=== PATIENT | male | born 2000 | race Caucasian/White ===

== ENCOUNTER 2022-12-25 10:05 | Emergency (ER) | payer OTHER ==
[~2022-12-25] VITALS: Ht 182.9 cm; Wt 77.1 kg
[2022-12-25 10:37] VITALS: BP 121/60
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
--- NOTE | 2022-12-25 11:22 | NUR ---
AMB. WITH NO DIFFICULTY
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
[2022-12-25] MEDS ORDERED: TETRACAINE HCL/PF 0.5% OPTH 4 ML BTL OP ONE (12:30)
--- NOTE | 2022-12-25 12:43 | NUR ---
ERMD AT BS FOR EYE EXAM. MEHUL ASSIST. KATHRYN PRESSURE CHECK.
[2022-12-25 12:51] VITALS: BP 129/64
--- NOTE | 2022-12-25 13:01 | NUR ---
KATHRYN PEN READING SUCCESFUL. READ AT 20. PENDING DISPO. PT MI WELL. IN GOOD SPIRITS.
[2022-12-25] MEDS ORDERED: IBUP-2213 PO (13:02)
--- NOTE | 2022-12-25 13:23 | NUR ---
Patient discharged with v/s stable. Written and verbal after care instructions FOR EYE CONTUSION given and explained. Patient alert, oriented and verbalized understanding of instructions. Ambulatory with steady gait. All questions addressed prior to discharge. ID band removed. Patient advised to follow up with PMD. Rx of IBUPROFEN given. Opportunity to ask questions provided and answered.
--- NOTE | 2022-12-25 13:31 | NUR ---
The patient's care was reviewed and supervised by [facility], RN.
== END 2022-12-25 13:23 | disposition home or self-care (01) ==
LOC: MED 10:05
DX: S00.11XA Contusion of right eyelid and periocular area, initial encounter (principal); X58.XXXA Exposure to other specified factors, initial encounter; Y93.89 Activity, other specified; Y92.89 Other specified places as the place of occurrence of the external cause; Y99.8 Other external cause status
CPT/HCPCS: 99283

== ENCOUNTER 2022-12-30 14:22 | Emergency (ER) | payer OTHER ==
[~2022-12-30] VITALS: Ht 182.9 cm; Wt 77.1 kg
[~2022-12-30 14:22] MED LIST: IBUP-2213 PO
[2022-12-30 14:35] VITALS: BP 104/51
[2022-12-30 17:52] VITALS: BP 125/72
--- NOTE | 2022-12-30 17:52 | NUR ---
Patient discharged with v/s stable. Written and verbal after care instructions given. Patient verbalized understanding. Ambulatory with steady gait. All questions addressed prior to discharge. Advised to follow up with PMD.
--- NOTE | 2022-12-30 17:53 | NUR ---
The patient's care was reviewed and supervised by Divya Jimenez, RN, RN.
== END 2022-12-30 17:52 | disposition home or self-care (01) ==
LOC: MED 14:22
DX: H11.31 Conjunctival hemorrhage, right eye (principal); Z79.1 Long term (current) use of non-steroidal anti-inflammatories (NSAID)
CPT/HCPCS: 99282